=== PATIENT | female | born 1935 | race Caucasian/White ===

== ENCOUNTER 2018-02-26 07:11 | Emergency (ER) | END 2018-02-26 10:12 | disposition home or self-care (01) ==

== ENCOUNTER → 2018-04-16 | Outpatient (CLI) | payer MEDICARE, OTHER ==
[~2018-04-16] MED LIST: ACET500 PO; ALPR.5 PO; Aspirin EC81 MG PO; CEPH500 PO; CONEST.625 PO; CYCL10 PO; DONE5 PO; HYDCHL12.5 PO; IBUP800 PO; LEVSOD75 PO; LOSA50 PO; LOSARTAN POTAS100 MG PO; MECL25 PO; PRAV20 PO; PROG100 PO; THYR60 PO; ZOLP5 PO; Zofran Odt8 MG SL
[2018-04-16 15:03] LABS: Bilirubin, Urine Neg (Neg); Blood, Urine Neg (Neg); Glucose Qualitative, Urine Neg (Neg); Ketones, Urine Neg (Neg); Leukocyte Esterase, Urine Neg (Neg); Nitrite, Urine Neg (Neg); Protein, Urine Neg (Neg); Urobilinogen, Urine NORM (Normal)
[2018-04-16 15:19] LABS: Appearance, Urine Clear (Clear); Color, Urine Yellow (P-Yellow)
== END | disposition home or self-care (01) ==
LOC: LAB EV 13:34 → LAB SHORT 13:34
PROVIDERS: Internal Medicine
DX: R30.0 Dysuria (principal)
CPT/HCPCS: 81003

== ENCOUNTER 2018-04-19 11:23 | Inpatient (IN) | payer MEDICARE, OTHER ==
[~2018-04-19] VITALS: Ht 175.3 cm; Wt 74.0 kg
[~2018-04-19 11:23] MED LIST changes: -ACET500 PO; -ALPR.5 PO; -DONE5 PO
[2018-04-19 11:57] LABS: BASOPHILS ABSOLUTE AUTO 0.05 K/mm3 (0.00-0.23); BASOPHILS PERCENT AUTO 1 % (0-2); EOSINOPHILS ABSOLUTE AUTO 0.07 K/mm3 (0.00-0.68); EOSINOPHILS PERCENT AUTO 1 % (0-6); Hematocrit 38.5 % (33.0-51.0); Hemoglobin 12.7 g/dL (11.5-16.0); IMMATURE GRAN ABSOLUTE AUTO 0.04 K/mm3 (0.00-0.10); IMMATURE GRAN PERCENT AUTO 1 % (0-1); LYMPHOCYTES ABSOLUTE AUTO 1.26 K/mm3 (0.84-5.20); LYMPHOCYTES PERCENT AUTO 20 % (21-46); MONOCYTES ABSOLUTE AUTO 0.71 K/mm3 (0.16-1.47); MONOCYTES PERCENT AUTO 11 % (4-13); Mean Corpuscular HGB 32.1 pg (26.0-34.0); Mean Corpuscular Volume 97 fL (80-100); Mean Platelet Volume 8.7 fL (9.1-12.4); NEUTROPHILS ABSOLUTE AUTO 4.28 K/mm3 (1.96-9.15); NEUTROPHILS PERCENT AUTO 67 % (41-73); Platelet Count 364 K/mm3 (150-400); RDW Coefficient Variation 13.5 % (11.7-14.2); RDW Standard Deviation 48.4 fL (35.1-46.3); Red Blood Cell Count 3.96 M/mm3 (3.80-5.20); White Blood Cell Count 6.41 K/mm3 (4.00-11.30)
[2018-04-19 12:19] LABS: Alanine Aminotransfer (ALT/SGP 17 U/L (12-78); Albumin, Blood 3.4 g/dL (3.4-5.0); Alk Phos 97 U/L (50-136); Anion Gap 8 mmol/L (6-16); Aspartate Aminotrans (AST/SGOT 19 U/L (12-37); Bilirubin, Total 0.3 mg/dL (0.1-1.0); Blood Urea Nitrogen 28 mg/dL (8-24); Bun/Creatinine Ratio 33.4 (12.0-20.0); CO2, Blood 27 mmol/L (21-32); Calcium, Blood 9.1 mg/dL (8.5-10.1); Chloride, Blood 108 mmol/L (98-108); Creatinine, Blood 0.84 mg/dL (0.40-1.00); Globulin, Blood 3.5 g/dL (2.2-4.0); Glomerular Filtration Rate >60 (60-); Glucose, Blood 101 mg/dL (70-99); Potassium, Blood 3.8 mmol/L (3.5-5.5); Sodium, Blood 143 mmol/L (136-145); Total Protein, Blood 6.9 g/dL (6.4-8.2)
[2018-04-19 23:42] LABS: Source, Urine Catheter
[2018-04-19 23:46] LABS: Bilirubin, Urine Neg (Neg); Blood, Urine 1+ (Neg); Glucose Qualitative, Urine Neg (Neg); Ketones, Urine Neg (Neg); Leukocyte Esterase, Urine 1+ (Neg); Nitrite, Urine Neg (Neg); Protein, Urine 1+ (Neg); Urobilinogen, Urine NORM (Normal)
[2018-04-19 23:49] LABS: Appearance, Urine Clear (Clear); Color, Urine Yellow (P-Yellow)
[2018-04-20] MEDS ORDERED: ALPR.5 PO (00:01)
[2018-04-20] MEDS ORDERED: ACET500 PO (00:01)
[2018-04-20] MEDS ORDERED: DONE5 PO (00:02)
[2018-04-20 00:05] LABS: Bacteria Few /hpf; Red Blood Cells, Urine 0-2 /hpf (0-2); Squamous Epithelial Cells Rare /hpf (Few)
[2018-04-20 04:22] LABS: BASOPHILS ABSOLUTE AUTO 0.06 K/mm3 (0.00-0.23); BASOPHILS PERCENT AUTO 1 % (0-2); EOSINOPHILS PERCENT AUTO 0 % (0-6); Hematocrit 35.2 % (33.0-51.0); Hemoglobin 11.8 g/dL (11.5-16.0); IMMATURE GRAN ABSOLUTE AUTO 0.06 K/mm3 (0.00-0.10); IMMATURE GRAN PERCENT AUTO 1 % (0-1); LYMPHOCYTES ABSOLUTE AUTO 1.28 K/mm3 (0.84-5.20); LYMPHOCYTES PERCENT AUTO 11 % (21-46); MONOCYTES PERCENT AUTO 9 % (4-13); Mean Corpuscular HGB 31.9 pg (26.0-34.0); Mean Corpuscular HGB Conc 33.5 g/dL (31.5-36.5); Mean Corpuscular Volume 95 fL (80-100); Mean Platelet Volume 9.2 fL (9.1-12.4); NEUTROPHILS ABSOLUTE AUTO 9.33 K/mm3 (1.96-9.15); NEUTROPHILS PERCENT AUTO 79 % (41-73); Platelet Count 365 K/mm3 (150-400); RDW Coefficient Variation 13.5 % (11.7-14.2); RDW Standard Deviation 47.8 fL (35.1-46.3); White Blood Cell Count 11.83 K/mm3 (4.00-11.30)
[2018-04-20 04:52] LABS: Anion Gap 11 mmol/L (6-16); Blood Urea Nitrogen 19 mg/dL (8-24); Bun/Creatinine Ratio 30.6 (12.0-20.0); CO2, Blood 24 mmol/L (21-32); Calcium, Blood 8.8 mg/dL (8.5-10.1); Chloride, Blood 108 mmol/L (98-108); Creatinine, Blood 0.62 mg/dL (0.40-1.00); Glomerular Filtration Rate >60 (60-); Glucose, Blood 132 mg/dL (70-99); Magnesium, Blood 1.9 mg/dL (1.6-2.4); Potassium, Blood 3.4 mmol/L (3.5-5.5); Sodium, Blood 143 mmol/L (136-145)
[2018-04-21 03:58] LABS: BASOPHILS ABSOLUTE AUTO 0.03 K/mm3 (0.00-0.23); BASOPHILS PERCENT AUTO 0 % (0-2); EOSINOPHILS PERCENT AUTO 0 % (0-6); Hematocrit 33.7 % (33.0-51.0); Hemoglobin 11.3 g/dL (11.5-16.0); IMMATURE GRAN PERCENT AUTO 1 % (0-1); LYMPHOCYTES ABSOLUTE AUTO 1.05 K/mm3 (0.84-5.20); LYMPHOCYTES PERCENT AUTO 8 % (21-46); MONOCYTES PERCENT AUTO 11 % (4-13); Mean Corpuscular HGB 31.9 pg (26.0-34.0); Mean Corpuscular HGB Conc 33.5 g/dL (31.5-36.5); Mean Corpuscular Volume 95 fL (80-100); Mean Platelet Volume 9.3 fL (9.1-12.4); NEUTROPHILS ABSOLUTE AUTO 9.88 K/mm3 (1.96-9.15); NEUTROPHILS PERCENT AUTO 79 % (41-73); Platelet Count 365 K/mm3 (150-400); RDW Coefficient Variation 13.6 % (11.7-14.2); Red Blood Cell Count 3.54 M/mm3 (3.80-5.20); White Blood Cell Count 12.46 K/mm3 (4.00-11.30)
[2018-04-21 04:11] LABS: Anion Gap 9 mmol/L (6-16); Blood Urea Nitrogen 18 mg/dL (8-24); CO2, Blood 24 mmol/L (21-32); Calcium, Blood 8.7 mg/dL (8.5-10.1); Chloride, Blood 110 mmol/L (98-108); Creatinine, Blood 0.67 mg/dL (0.40-1.00); Glomerular Filtration Rate >60 (60-); Glucose, Blood 132 mg/dL (70-99); Potassium, Blood 3.4 mmol/L (3.5-5.5); Sodium, Blood 143 mmol/L (136-145)
[2018-04-21] MEDS ORDERED: ZOLP10 PO (18:58)
[2018-04-22] MEDS ORDERED: LOSA50 PO (10:56)
[2018-04-22] MEDS ORDERED: Xalatan2.5 ML BOTHEYES (10:57)
[2018-04-22] MEDS ORDERED: QUETIAPINE FUMA50 MG PO (10:58)
[2018-04-22] MEDS ORDERED: TIMOLOL MALEATE5 ML BOTHEYES (11:00)
[2018-04-22] MEDS ORDERED: POTCHL10ER PO (11:01)
== END 2018-04-22 12:09 | disposition home health service (06) | DRG 70 ==
LOC: ER 11:23 → ICUW 15:35 → MEDS 17:30 → ENPENDDIS 04-22 09:59 → MEDS 04-22 12:09
PROVIDERS: Internal Medicine; Nurse Practitioner Acute Care; Physician Assistant
DX: G93.41 Metabolic encephalopathy (principal); I63.9 Cerebral infarction, unspecified; N39.0 Urinary tract infection, site not specified; I10 Essential (primary) hypertension; Z51.5 Encounter for palliative care; E78.5 Hyperlipidemia, unspecified; E03.9 Hypothyroidism, unspecified; M17.12 Unilateral primary osteoarthritis, left knee; I16.0 Hypertensive urgency; Z79.82 Long term (current) use of aspirin; R27.0 Ataxia, unspecified; Z85.118 Personal history of other malignant neoplasm of bronchus and lung; Z92.3 Personal history of irradiation; F03.90 Unspecified dementia, unspecified severity, without behavioral disturbance, psychotic disturbance, mood disturbance, and anxiety; E87.6 Hypokalemia; H40.9 Unspecified glaucoma; Z99.3 Dependence on wheelchair; S05.10XD Contusion of eyeball and orbital tissues, unspecified eye, subsequent encounter; W19.XXXD Unspecified fall, subsequent encounter
CPT/HCPCS: 36415; 70450; 70551; 71250; 72100; 73562-LT; 80048; 80053; 81000; 81001; 83735; 85025; 87086; 87493; 93005; 93010; 96361; 96365; 96375; 97163; 97530; 99285-25; C9113; G8978; G8979; J0360; J0696; J1630; J1650; J2060; J3010; J3480; J7030; J7120

== ENCOUNTER 2018-10-19 08:12 | Emergency (ER) | payer MEDICARE, OTHER ==
[~2018-10-19] VITALS: Ht 175.3 cm; Wt 72.6 kg
[~2018-10-19 08:12] MED LIST changes: +ACET500 PO; +ALPR.5 PO; +AMLO5 PO; +CONEST.9 PO; +DONE5 PO; +FENTANYL1 EAC2 TOP; +GABA100 PO; +GABA300 PO; +LOVA40; +MECL12.5 PO; +Micro-K10 MEQ; +OXYB5 PO; +POTCHL10ER PO; +QUET25 PO; +QUETIAPINE FUMA50 MG PO; +SENN187 PO; +TIMOLOL MALEATE5 ML BOTHEYES; +TIMOPTIC 0.5%1 EACH BOTHEYES; +TRAZ50 PO; +Xalatan2.5 ML BOTHEYES; +ZOLP10 PO; +Zanaflex4 M1 PO
[2018-10-19 08:50] LABS: BASOPHILS ABSOLUTE AUTO 0.08 K/mm3 (0.00-0.23); BASOPHILS PERCENT AUTO 1 % (0-2); EOSINOPHILS ABSOLUTE AUTO 0.18 K/mm3 (0.00-0.68); EOSINOPHILS PERCENT AUTO 3 % (0-6); Hematocrit 40.9 % (33.0-51.0); Hemoglobin 13.1 g/dL (11.5-16.0); IMMATURE GRAN ABSOLUTE AUTO 0.02 K/mm3 (0.00-0.10); IMMATURE GRAN PERCENT AUTO 0 % (0-1); LYMPHOCYTES ABSOLUTE AUTO 1.47 K/mm3 (0.84-5.20); LYMPHOCYTES PERCENT AUTO 23 % (21-46); MONOCYTES PERCENT AUTO 14 % (4-13); Mean Corpuscular HGB 30.2 pg (26.0-34.0); Mean Corpuscular Volume 94 fL (80-100); Mean Platelet Volume 8.4 fL (9.1-12.4); NEUTROPHILS ABSOLUTE AUTO 3.77 K/mm3 (1.96-9.15); NEUTROPHILS PERCENT AUTO 59 % (41-73); Platelet Count 342 K/mm3 (150-400); RDW Coefficient Variation 13.2 % (11.7-14.2); RDW Standard Deviation 45.7 fL (35.1-46.3); Red Blood Cell Count 4.34 M/mm3 (3.80-5.20); White Blood Cell Count 6.42 K/mm3 (4.00-11.30)
[2018-10-19 09:13] LABS: Alanine Aminotransfer (ALT/SGP 13 U/L (12-78); Albumin, Blood 3.3 g/dL (3.4-5.0); Albumin/Globulin Ratio 0.9 (0.8-1.8); Alk Phos 100 U/L (50-136); Anion Gap 8 mmol/L (6-16); Aspartate Aminotrans (AST/SGOT 10 U/L (12-37); Bilirubin, Total 0.3 mg/dL (0.1-1.0); Blood Urea Nitrogen 24 mg/dL (8-24); Bun/Creatinine Ratio 25.6 (12.0-20.0); CO2, Blood 27 mmol/L (21-32); Calcium, Blood 9.1 mg/dL (8.5-10.1); Chloride, Blood 107 mmol/L (98-108); Creatinine, Blood 0.94 mg/dL (0.40-1.00); Globulin, Blood 3.7 g/dL (2.2-4.0); Glomerular Filtration Rate >60 (60-); Glucose, Blood 109 mg/dL (70-99); Magnesium, Blood 2.1 mg/dL (1.6-2.4); Potassium, Blood 3.5 mmol/L (3.5-5.5); Sodium, Blood 142 mmol/L (136-145); Troponin I <0.015 ng/mL (0.000-0.040)
[2018-10-19 11:23] LABS: Source, Urine Clean Catch
[2018-10-19 11:36] LABS: Appearance, Urine Clear (Clear); Bilirubin, Urine Neg (Neg); Blood, Urine Neg (Neg); Color, Urine Yellow (P-Yellow); Glucose Qualitative, Urine Neg (Neg); Ketones, Urine Neg (Neg); Leukocyte Esterase, Urine Neg (Neg); Nitrite, Urine Neg (Neg); Protein, Urine 1+ (Neg); Urobilinogen, Urine NORM (Normal)
== END 2018-10-19 11:39 | disposition home or self-care (01) ==
LOC: ER 08:12
PROVIDERS: Physician Assistant
DX: R06.00 Dyspnea, unspecified (principal); R53.1 Weakness; I10 Essential (primary) hypertension
CPT/HCPCS: 36415; 71046; 80053; 83735; 84484; 85025; 93005; 93010; 99285-25

== ENCOUNTER → 2018-10-29 | Outpatient (CLI) | payer MEDICARE, OTHER | END | disposition home or self-care (01) | LOC: LAB 15:27 → LAB SHORT 15:27 | DX: R07.0 Pain in throat (principal) | CPT/HCPCS: 87070 ==

== ENCOUNTER 2018-12-22 23:06 | Emergency (ER) | payer MEDICARE, OTHER ==
[~2018-12-22] VITALS: Ht 175.3 cm; Wt 64.0 kg
[2018-12-23] MEDS ORDERED: KETO10 PO (01:07)
[2018-12-23] MEDS ORDERED: Norco 5-325 Ta1 EACH PO (01:07)
== END 2018-12-23 01:42 | disposition home or self-care (01) ==
LOC: ER 23:06
DX: M17.12 Unilateral primary osteoarthritis, left knee (principal); Z88.5 Allergy status to narcotic agent; Z79.899 Other long term (current) drug therapy; Z79.891 Long term (current) use of opiate analgesic; I10 Essential (primary) hypertension
CPT/HCPCS: 96372; 99283-25; A9270-GY; J1885

== ENCOUNTER 2019-05-06 10:43 | Emergency (ER) | payer MEDICARE, OTHER ==
[~2019-05-06] VITALS: Ht 177.8 cm; Wt 79.4 kg
[~2019-05-06 10:43] MED LIST changes: +KETO10 PO; +Norco 5-325 Ta1 EACH PO
[2019-05-06 11:21] LABS: BASOPHILS ABSOLUTE AUTO 0.07 K/mm3 (0.00-0.23); BASOPHILS PERCENT AUTO 1 % (0-2); EOSINOPHILS ABSOLUTE AUTO 0.09 K/mm3 (0.00-0.68); EOSINOPHILS PERCENT AUTO 1 % (0-6); Hematocrit 43.2 % (33.0-51.0); Hemoglobin 13.8 g/dL (11.5-16.0); IMMATURE GRAN ABSOLUTE AUTO 0.05 K/mm3 (0.00-0.10); IMMATURE GRAN PERCENT AUTO 1 % (0-1); LYMPHOCYTES ABSOLUTE AUTO 1.22 K/mm3 (0.84-5.20); LYMPHOCYTES PERCENT AUTO 17 % (21-46); MONOCYTES ABSOLUTE AUTO 0.94 K/mm3 (0.16-1.47); MONOCYTES PERCENT AUTO 13 % (4-13); Mean Corpuscular HGB 30.5 pg (26.0-34.0); Mean Corpuscular HGB Conc 31.9 g/dL (31.5-36.5); Mean Corpuscular Volume 95 fL (80-100); Mean Platelet Volume 8.7 fL (9.1-12.4); NEUTROPHILS ABSOLUTE AUTO 4.75 K/mm3 (1.96-9.15); NEUTROPHILS PERCENT AUTO 67 % (41-73); Platelet Count 364 K/mm3 (150-400); RDW Coefficient Variation 14.1 % (11.7-14.2); RDW Standard Deviation 49.3 fL (35.1-46.3); Red Blood Cell Count 4.53 M/mm3 (3.80-5.20); White Blood Cell Count 7.12 K/mm3 (4.00-11.30)
[2019-05-06 11:35] LABS: Alanine Aminotransfer (ALT/SGP 16 U/L (12-78); Albumin, Blood 3.4 g/dL (3.4-5.0); Albumin/Globulin Ratio 0.9 (0.8-1.8); Alk Phos 93 U/L (50-136); Anion Gap 5 mmol/L (6-16); Aspartate Aminotrans (AST/SGOT 13 U/L (12-37); Bilirubin, Total 0.4 mg/dL (0.1-1.0); Blood Urea Nitrogen 19 mg/dL (8-24); Bun/Creatinine Ratio 20.6 (12.0-20.0); CO2, Blood 26 mmol/L (21-32); Chloride, Blood 110 mmol/L (98-108); Creatinine, Blood 0.92 mg/dL (0.40-1.00); Globulin, Blood 3.8 g/dL (2.2-4.0); Glomerular Filtration Rate >60 (60-); Glucose, Blood 122 mg/dL (70-99); Potassium, Blood 3.8 mmol/L (3.5-5.5); Sodium, Blood 141 mmol/L (136-145); Total Protein, Blood 7.2 g/dL (6.4-8.2)
[2019-05-06 12:27] LABS: Source, Urine Catheter
[2019-05-06 12:29] LABS: Free Thyroxine 1.39 ng/dL (0.70-1.60); Magnesium, Blood 2.3 mg/dL (1.6-2.4)
[2019-05-06 12:30] LABS: Bilirubin, Urine Neg (Neg); Blood, Urine Neg (Neg); Glucose Qualitative, Urine Neg (Neg); Ketones, Urine Neg (Neg); Leukocyte Esterase, Urine Neg (Neg); Nitrite, Urine Neg (Neg); Protein, Urine 1+ (Neg); Specific Gravity, Urine 1.015 (1.003-1.022); Urobilinogen, Urine NORM (Normal)
[2019-05-06 12:31] LABS: Thyroid Stimulating Hormone 1.53 uIU/mL (0.360-4.800)
[2019-05-06 12:39] LABS: Appearance, Urine Clear (Clear); Color, Urine Yellow (P-Yellow)
== END 2019-05-06 14:34 | disposition home or self-care (01) ==
LOC: ER 10:43
PROVIDERS: Emergency Medicine
DX: I10 Essential (primary) hypertension (principal); R53.1 Weakness; M25.561 Pain in right knee; M25.562 Pain in left knee; G89.29 Other chronic pain; Z88.5 Allergy status to narcotic agent; Z79.899 Other long term (current) drug therapy; Z79.891 Long term (current) use of opiate analgesic; F03.90 Unspecified dementia, unspecified severity, without behavioral disturbance, psychotic disturbance, mood disturbance, and anxiety; E03.9 Hypothyroidism, unspecified
CPT/HCPCS: 36415; 80053; 83735; 84439; 84443; 85025; 93005; 93010; 96374; 99284-25; J0360

== ENCOUNTER → 2019-08-08 | Outpatient (CLI) | payer MEDICARE, OTHER ==
[2019-08-08 13:23] LABS: BASOPHILS ABSOLUTE AUTO 0.07 K/mm3 (0.00-0.23); BASOPHILS PERCENT AUTO 1 % (0-2); EOSINOPHILS ABSOLUTE AUTO 0.03 K/mm3 (0.00-0.68); EOSINOPHILS PERCENT AUTO 0 % (0-6); Hematocrit 40.7 % (33.0-51.0); Hemoglobin 13.5 g/dL (11.5-16.0); IMMATURE GRAN ABSOLUTE AUTO 0.07 K/mm3 (0.00-0.10); IMMATURE GRAN PERCENT AUTO 1 % (0-1); LYMPHOCYTES ABSOLUTE AUTO 1.32 K/mm3 (0.84-5.20); LYMPHOCYTES PERCENT AUTO 15 % (21-46); MONOCYTES ABSOLUTE AUTO 0.89 K/mm3 (0.16-1.47); MONOCYTES PERCENT AUTO 10 % (4-13); Mean Corpuscular HGB 31.9 pg (26.0-34.0); Mean Corpuscular HGB Conc 33.2 g/dL (31.5-36.5); Mean Corpuscular Volume 96 fL (80-100); Mean Platelet Volume 9.4 fL (9.1-12.4); NEUTROPHILS ABSOLUTE AUTO 6.47 K/mm3 (1.96-9.15); NEUTROPHILS PERCENT AUTO 73 % (41-73); Platelet Count 435 K/mm3 (150-400); RDW Coefficient Variation 13.3 % (11.7-14.2); RDW Standard Deviation 47.1 fL (35.1-46.3); Red Blood Cell Count 4.23 M/mm3 (3.80-5.20); White Blood Cell Count 8.85 K/mm3 (4.00-11.30)
[2019-08-08 13:39] LABS: Alanine Aminotransfer (ALT/SGP 15 U/L (12-78); Albumin, Blood 3.2 g/dL (3.4-5.0); Albumin/Globulin Ratio 0.9 (0.8-1.8); Alk Phos 90 U/L (50-136); Anion Gap 9 mmol/L (6-16); Aspartate Aminotrans (AST/SGOT 15 U/L (12-37); Bilirubin, Total 0.2 mg/dL (0.1-1.0); Blood Urea Nitrogen 24 mg/dL (8-24); Bun/Creatinine Ratio 29.7 (12.0-20.0); CO2, Blood 26 mmol/L (21-32); Calcium, Blood 9.3 mg/dL (8.5-10.1); Chloride, Blood 108 mmol/L (98-108); Creatinine, Blood 0.81 mg/dL (0.40-1.00); Globulin, Blood 3.7 g/dL (2.2-4.0); Glomerular Filtration Rate >60 (60-); Glucose, Blood 109 mg/dL (70-99); Potassium, Blood 3.8 mmol/L (3.5-5.5); Sodium, Blood 143 mmol/L (136-145); Total Protein, Blood 6.9 g/dL (6.4-8.2)
== END | disposition home or self-care (01) ==
LOC: LAB 13:14 → LAB SHORT 13:14
PROVIDERS: Physician Assistant
DX: R53.83 Other fatigue (principal); R53.81 Other malaise
CPT/HCPCS: 80053; 85025

== ENCOUNTER → 2019-08-15 | Outpatient (CLI) | payer MEDICARE, OTHER ==
[~2019-08-15] MED LIST changes: +Betimol5 ML BOTHEYES; +LATANOPROST2.5 M1 BOTHEYES; +MOTION RELIEF25 M1 PO; +PREDNISOLONE ACE5 ML BOTHEYES; -TIMOPTIC 0.5%1 EACH BOTHEYES
[2019-08-15 11:35] LABS: Source, Urine Clean Catch
[2019-08-15 12:05] LABS: Bilirubin, Urine Neg (Neg); Blood, Urine Neg (Neg); Glucose Qualitative, Urine Neg (Neg); Ketones, Urine Neg (Neg); Leukocyte Esterase, Urine 1+ (Neg); Nitrite, Urine Neg (Neg); Protein, Urine Neg (Neg); Specific Gravity, Urine 1.015 (1.003-1.022); Urobilinogen, Urine NORM (Normal); pH, Urine 6.5 (5.0-8.0)
[2019-08-15 12:16] LABS: Appearance, Urine Clear (Clear); Color, Urine Yellow (P-Yellow)
[2019-08-15 12:22] LABS: Red Blood Cells, Urine 0-2 /hpf (0-2); Squamous Epithelial Cells Few /hpf (Few)
[2019-08-15 12:23] LABS: Bacteria Few /hpf
== END | disposition home or self-care (01) ==
LOC: LAB 11:30 → LAB SHORT 11:30
PROVIDERS: Physician Assistant
DX: N39.0 Urinary tract infection, site not specified (principal)
CPT/HCPCS: 81001; 87086

== ENCOUNTER 2019-08-29 16:37 | Emergency (ER) | payer MEDICARE, OTHER ==
[~2019-08-29] VITALS: Ht 172.7 cm; Wt 99.8 kg
[~2019-08-29 16:37] MED LIST changes: -Betimol5 ML BOTHEYES; -LATANOPROST2.5 M1 BOTHEYES; -MOTION RELIEF25 M1 PO; -PREDNISOLONE ACE5 ML BOTHEYES; +TIMOPTIC 0.5%1 EACH BOTHEYES
[2019-08-29 17:41] LABS: BASOPHILS ABSOLUTE AUTO 0.09 K/mm3 (0.00-0.23); BASOPHILS PERCENT AUTO 1 % (0-2); EOSINOPHILS ABSOLUTE AUTO 0.16 K/mm3 (0.00-0.68); EOSINOPHILS PERCENT AUTO 2 % (0-6); Hematocrit 41.8 % (33.0-51.0); Hemoglobin 13.5 g/dL (11.5-16.0); IMMATURE GRAN ABSOLUTE AUTO 0.05 K/mm3 (0.00-0.10); IMMATURE GRAN PERCENT AUTO 1 % (0-1); LYMPHOCYTES ABSOLUTE AUTO 1.67 K/mm3 (0.84-5.20); LYMPHOCYTES PERCENT AUTO 21 % (21-46); MONOCYTES ABSOLUTE AUTO 1.09 K/mm3 (0.16-1.47); MONOCYTES PERCENT AUTO 14 % (4-13); Mean Corpuscular HGB 30.8 pg (26.0-34.0); Mean Corpuscular HGB Conc 32.3 g/dL (31.5-36.5); Mean Corpuscular Volume 95 fL (80-100); Mean Platelet Volume 9.8 fL (9.1-12.4); NEUTROPHILS ABSOLUTE AUTO 4.79 K/mm3 (1.96-9.15); NEUTROPHILS PERCENT AUTO 61 % (41-73); Platelet Count 378 K/mm3 (150-400); RDW Coefficient Variation 13.4 % (11.7-14.2); RDW Standard Deviation 47.7 fL (35.1-46.3); Red Blood Cell Count 4.38 M/mm3 (3.80-5.20); White Blood Cell Count 7.85 K/mm3 (4.00-11.30)
[2019-08-29 18:16] LABS: Source, Urine Clean Catch
[2019-08-29 18:21] LABS: Bilirubin, Urine Neg (Neg); Blood, Urine Neg (Neg); Glucose Qualitative, Urine Neg (Neg); Ketones, Urine Neg (Neg); Leukocyte Esterase, Urine Neg (Neg); Nitrite, Urine Neg (Neg); Protein, Urine Neg (Neg); Urobilinogen, Urine NORM (Normal)
[2019-08-29 18:54] LABS: Appearance, Urine Clear (Clear); Color, Urine Yellow (P-Yellow)
[2019-08-29 19:23] LABS: Bicarbonate Venous 26.5 mmol/L (24.0-30.0); PCO2 Venous 39.3 mmHg (38-42); PO2 Venous 158 mmHg (38-42); pH Blood Venous 7.44 (7.34-7.37)
[2019-08-29 19:24] LABS: Base Excess Venous 2.4 mmol/L
[2019-08-29 19:26] LABS: Alanine Aminotransfer (ALT/SGP 18 U/L (12-78); Albumin, Blood 3.2 g/dL (3.4-5.0); Albumin/Globulin Ratio 0.8 (0.8-1.8); Alk Phos 95 U/L (50-136); Anion Gap 8 mmol/L (6-16); Aspartate Aminotrans (AST/SGOT 13 U/L (12-37); Bilirubin, Total 0.3 mg/dL (0.1-1.0); Blood Urea Nitrogen 18 mg/dL (8-24); Bun/Creatinine Ratio 23.2 (12.0-20.0); CO2, Blood 24 mmol/L (21-32); Calcium, Blood 9.9 mg/dL (8.5-10.1); Chloride, Blood 109 mmol/L (98-108); Creatinine, Blood 0.78 mg/dL (0.40-1.00); Globulin, Blood 3.8 g/dL (2.2-4.0); Glomerular Filtration Rate >60 (60-); Glucose, Blood 115 mg/dL (70-99); Potassium, Blood 3.9 mmol/L (3.5-5.5); Sodium, Blood 141 mmol/L (136-145); Troponin I <0.015 ng/mL (0.000-0.040)
== END 2019-08-29 20:29 | disposition home or self-care (01) ==
LOC: ER 16:37
PROVIDERS: Emergency Medicine
DX: R06.02 Shortness of breath (principal); I10 Essential (primary) hypertension; Z88.5 Allergy status to narcotic agent; Z79.899 Other long term (current) drug therapy
CPT/HCPCS: 36415; 71045; 80053; 81003; 82803; 83690; 84484; 85025; 93005; 93010; 96374; 96375; 99284-25; J2060

== ENCOUNTER → 2019-10-07 | Outpatient (CLI) | payer MEDICARE, OTHER ==
[~2019-10-07] MED LIST changes: +Betimol5 ML BOTHEYES; +LATANOPROST2.5 M1 BOTHEYES; +MOTION RELIEF25 M1 PO; +PREDNISOLONE ACE5 ML BOTHEYES; -TIMOPTIC 0.5%1 EACH BOTHEYES
== END ==
LOC: LAB EV 09:28
DX: R35.0 Frequency of micturition (principal)
CPT/HCPCS: 87086

== ENCOUNTER 2019-10-16 09:48 | Inpatient (IN) | payer MEDICARE, OTHER ==
[~2019-10-16] VITALS: Ht 167.6 cm; Wt 77.3 kg
[~2019-10-16 09:48] MED LIST changes: -LATANOPROST2.5 M1 BOTHEYES; -MOTION RELIEF25 M1 PO; -PREDNISOLONE ACE5 ML BOTHEYES
[2019-10-16 10:00] LABS: BASOPHILS ABSOLUTE AUTO 0.08 K/mm3 (0.00-0.23); BASOPHILS PERCENT AUTO 1 % (0-2); EOSINOPHILS ABSOLUTE AUTO 0.04 K/mm3 (0.00-0.68); EOSINOPHILS PERCENT AUTO 1 % (0-6); Hemoglobin 13.5 g/dL (11.5-16.0); IMMATURE GRAN ABSOLUTE AUTO 0.07 K/mm3 (0.00-0.10); IMMATURE GRAN PERCENT AUTO 1 % (0-1); LYMPHOCYTES ABSOLUTE AUTO 1.62 K/mm3 (0.84-5.20); LYMPHOCYTES PERCENT AUTO 19 % (21-46); MONOCYTES ABSOLUTE AUTO 0.85 K/mm3 (0.16-1.47); MONOCYTES PERCENT AUTO 10 % (4-13); Mean Corpuscular HGB 30.8 pg (26.0-34.0); Mean Corpuscular HGB Conc 32.1 g/dL (31.5-36.5); Mean Corpuscular Volume 96 fL (80-100); Mean Platelet Volume 8.7 fL (9.1-12.4); NEUTROPHILS ABSOLUTE AUTO 5.67 K/mm3 (1.96-9.15); NEUTROPHILS PERCENT AUTO 68 % (41-73); Platelet Count 423 K/mm3 (150-400); RDW Standard Deviation 46.6 fL (35.1-46.3); Red Blood Cell Count 4.38 M/mm3 (3.80-5.20); White Blood Cell Count 8.33 K/mm3 (4.00-11.30)
[2019-10-16 10:16] LABS: International Normalized Ratio 0.96; Prothrombin Time Results 10.3 Sec (9.7-11.5)
[2019-10-16 10:19] LABS: Alanine Aminotransfer (ALT/SGP 20 U/L (12-78); Albumin, Blood 3.3 g/dL (3.4-5.0); Albumin/Globulin Ratio 0.8 (0.8-1.8); Alk Phos 99 U/L (50-136); Anion Gap 7 mmol/L (6-16); Aspartate Aminotrans (AST/SGOT 16 U/L (12-37); Bilirubin, Total 0.3 mg/dL (0.1-1.0); Blood Urea Nitrogen 16 mg/dL (8-24); Bun/Creatinine Ratio 20.4 (12.0-20.0); CO2, Blood 26 mmol/L (21-32); Calcium, Blood 9.1 mg/dL (8.5-10.1); Chloride, Blood 108 mmol/L (98-108); Creatinine, Blood 0.78 mg/dL (0.40-1.00); Globulin, Blood 4.1 g/dL (2.2-4.0); Glomerular Filtration Rate >60 (60-); Glucose, Blood 139 mg/dL (70-99); Potassium, Blood 3.7 mmol/L (3.5-5.5); Sodium, Blood 141 mmol/L (136-145); Total Protein, Blood 7.4 g/dL (6.4-8.2); Troponin I <0.015 ng/mL (0.000-0.040)
[2019-10-16] MEDS ORDERED: MOTION RELIEF25 M1 PO (13:38)
[2019-10-16] MEDS ORDERED: PREDNISOLONE ACE5 ML BOTHEYES (13:38)
[2019-10-16] MEDS ORDERED: LATANOPROST2.5 M1 BOTHEYES (13:46)
--- NOTE | 2019-10-16 19:27 | NUR ---
1220 - PT ARRIVED TO ROOM FROM ER ACCOMPANIED BY CARLOS CAREGIVER. PT HAS PROFOUND LEFT FACIAL DROOP WITH FLACID LEFT EXTREMETIES AND DRIFT. SLURRED SPEECH, KEEPS REPEATING SHE IS IN PAIN. ORDERS OBTAINED FOR IVF, PAIN MEDS AND THERAPY EVALS. 1330 - IV MEDS GIVEN, PT POSITIONED FOR COMFORT ON R SIDE. CG AT BEDSIDE. PT STILL CALLING OUT. LIGHTS DIMMED. CALL LIGHT WITH CG. 1530 - REQ FOR MORE PAIN MEDS GIVEN. CG AT BEDSIDE 1630 - SPOUSE AT BEDSIDE. PT CALLING OUT TO USE THE COMMODE. ODD PIECE CHECKER'S ALREADY TRIED THE BED GRANT, SHE WOULD NOT GO. ALSO WOULD NOT GO IN ATTENDS. LEFT EXTREMETIES HAVE SOME MOVEMENT BUT VERY WEAK. ABLE TO LIFT ARM AND LEG, FACIAL DROOP STILL PRESENT. 1830 - CHECKED ON PT, SHE WAS SITTING UP WITH HOB ELEVATED, SITTING UPRIGHT WITHOUT LISTING THE THE LEFT. MOVING ALL EXTREMETIES, NO FACIAL DROOP NOTED. HAD GOWN OFF. REPLACED GOWN, REORIENTED TO PLACE AND EVENTS. ADVANCED ALZ, SEEING PEOPLE IN THE ROOM. NO LONGER REQUESTING TO GO TO THE BATHROOM. 1715 - REPORT GIVEN TO DORINDA CAMARGO AND TONYA CAMARGO
--- NOTE | 2019-10-16 20:00 | NUR ---
ASSUMED CARE OF PT. APPEARS ANXIOUS AND CONFUSED, STATING SHE NEEDS TO LEAVE "THIS PLACE." REASSURED PT THAT SHE IS SAFE HERE. NO OTHER SIGNS OF DISTRESS NOTED. DENIES ANY NEEDS AT THIS TIME. CALL LIGHT AND POSSESSIONS IN REACH, BED IN LOW AND LOCKED POSITION WITH BED ALARM ACTIVATED, WILL CONTINUE TO MONITOR.
--- NOTE | 2019-10-16 21:34 | NUR ---
PATIENT AGITATED PATIENT ATTEMPTING TO GET UP OUT OF BED. PATEINT YELLING 'SOMEONE HELP' - PATIENT CONFUSED TO LOCATION, TIME AND SITUATION. PATIENT STATES HER WAS IN PRISION, THEN STATES AT HOSPITAL. PATIENT EDUCATED AND REORIENTED TO ROOM BUT PATIENT REMAINS CONFUSED TO LOCATION, TIME AND SITUATION. PATIENT REDIRECTED EVERY 5-10 MINUTES FOR THE LAST 1 HOUR + AND PATIENT CONTINUES TO YELL OUT. SIDE RAILS UP X4 AND BED ALARM ON. PER DAYSHIFT RN PATIENTS , JOHNNY, WAS AT THE BEDSIDE T/O DAY AND LEFT BEFORE DARK HE DOES NOT DRIVE WELL AT NIGHT. WILL CONTINUE TO REDIRECT, REEDUCATE AND PROVIDE SOOTHING MEASURES TO PATIENT. CALLED PATIENTS SPOUSE AND LEFT A MESSAGE - WITH THE THOUGHT THAT SPEAKING TO HIM ON THE PHONE MIGHT CONSOLE HER.
[2019-10-17 03:56] LABS: BASOPHILS ABSOLUTE AUTO 0.07 K/mm3 (0.00-0.23); BASOPHILS PERCENT AUTO 1 % (0-2); EOSINOPHILS ABSOLUTE AUTO 0.02 K/mm3 (0.00-0.68); EOSINOPHILS PERCENT AUTO 0 % (0-6); Hematocrit 43.4 % (33.0-51.0); Hemoglobin 13.8 g/dL (11.5-16.0); IMMATURE GRAN ABSOLUTE AUTO 0.08 K/mm3 (0.00-0.10); IMMATURE GRAN PERCENT AUTO 1 % (0-1); LYMPHOCYTES ABSOLUTE AUTO 2.06 K/mm3 (0.84-5.20); LYMPHOCYTES PERCENT AUTO 16 % (21-46); MONOCYTES ABSOLUTE AUTO 1.15 K/mm3 (0.16-1.47); MONOCYTES PERCENT AUTO 9 % (4-13); Mean Corpuscular HGB 30.3 pg (26.0-34.0); Mean Corpuscular HGB Conc 31.8 g/dL (31.5-36.5); Mean Corpuscular Volume 95 fL (80-100); Mean Platelet Volume 8.9 fL (9.1-12.4); NEUTROPHILS ABSOLUTE AUTO 9.24 K/mm3 (1.96-9.15); NEUTROPHILS PERCENT AUTO 73 % (41-73); Platelet Count 422 K/mm3 (150-400); RDW Coefficient Variation 13.1 % (11.7-14.2); RDW Standard Deviation 46.4 fL (35.1-46.3); Red Blood Cell Count 4.56 M/mm3 (3.80-5.20); White Blood Cell Count 12.62 K/mm3 (4.00-11.30)
[2019-10-17 04:24] LABS: Anion Gap 7 mmol/L (6-16); Blood Urea Nitrogen 16 mg/dL (8-24); Bun/Creatinine Ratio 22.1 (12.0-20.0); CO2, Blood 22 mmol/L (21-32); Calcium, Blood 8.9 mg/dL (8.5-10.1); Chloride, Blood 113 mmol/L (98-108); Creatinine, Blood 0.73 mg/dL (0.40-1.00); Glomerular Filtration Rate >60 (60-); Glucose, Blood 123 mg/dL (70-99); Potassium, Blood 3.7 mmol/L (3.5-5.5); Sodium, Blood 142 mmol/L (136-145)
[2019-10-17 06:12] LABS: Source, Urine Catheter
[2019-10-17 06:28] LABS: Appearance, Urine Clear (Clear); Bilirubin, Urine Neg (Neg); Blood, Urine Neg (Neg); Color, Urine Yellow (P-Yellow); Glucose Qualitative, Urine Neg (Neg); Ketones, Urine 1+ (Neg); Leukocyte Esterase, Urine Neg (Neg); Nitrite, Urine Neg (Neg); Protein, Urine 1+ (Neg); Urobilinogen, Urine NORM (Normal)
--- NOTE | 2019-10-17 07:36 | NUR ---
PT RESTING IN BED COMFORTABLY, IN NO ACUTE DISTRESS. WAS MONITORED EVERY 1-2 HOURS WITH NEEDS MET. DENIES ANY NEEDS AT THIS TIME. CALL LIGHT AND POSSESSIONS IN REACH, BED IN LOW POSITION.
--- NOTE | 2019-10-17 08:15 | NUR ---
AM ASSESSMENT: PT IS ALERT, ORIENTED TO SELF/FAMILY ONLY. PT RE-ORIENTED AT THIS TIME, HOWEVER, HAS POOR SHORT TERM MEMORY. PT IS ANXIOUS AND APPEARS FEARFUL OF CARE AT TIMES, AND UNWILLING TO COMPLETE DIRECTIONS ASKED. PT HAS SLIGHTLY LEFT FACIAL DROOP WITH SMILE. SOME LT SIDE NEGLECT AND UE DRIFT AND WEAKER PROCESS ANALYST ON THE LT SIDE. LUNGS ARE CLEAR T/O BUT DIMINISHED IN THE BILATERAL BASES. SP02 SATS >90% ON RA. HR REGULAR, SR. TRACE LE EDEMA BILATERALLY. SIMMS CATH DRAINING CLEAR, DUTCH COLORED URINE TO GRAVITY. NO BM THIS SHIFT.
--- NOTE | 2019-10-17 11:55 | NUR ---
DR CEJA IN TO ASSESS PT. UPDATED PT'S STATUS. SEE NEW ORDERS.
--- NOTE | 2019-10-17 14:31 | NUR ---
PT UPDATE: MARLI PALLATIVE CARE RN IN TO TALK WITH PT'S CAREGIVER, KELSEY. UNFORTUNATELY, PT'S SPOUSE UNABLE TO BE AT THE BEDSIDE AT THIS TIME. DISCUSSED HOME CARE/NEEDS, DIET, ETC. SEE PALLPIYUSH NOTES. MRI FORM FAXED TO RADIOLOGY AFTER PT'S SPOUSE SIGNED RECENTLY.
--- NOTE | 2019-10-17 14:48 | NUR ---
Brief Pt visit this afternoon. Pt resting in bed and just received pain medication from bedside RN. Pt is A&OX1. Pt's just recently left and Pt's caregiver is just about to leave. Engaged in brief discussion regarding goals of care. Caregiver Carmel reports Pt's would still like Pt to be placed with hospice services when she is appropriate. Carmel reports [facility] and was evaluated by hospice approximately 1 month ago and at that time Pt did not meet criteria. Carmel reports Pt's home health nurse and Pt's are in routine communication with [facility]. Carmel reports Pt at baseline is able to have general diet without any restrictions. Pt experiences significant confusion routinely and requires assistance with most of her ADLs. Spoke with Pt's bedside RN Kaleb and discussed case. Plan is for MRI today or tomorrow. Palliative Care will F/U for therapeutic visits and will plan for prognostication assessment.
--- NOTE | 2019-10-17 16:38 | NUR ---
SHIFT SUMMARY: PT IS ALERT, ORIENTED TO SELF ONLY. PT HAS BEEN CALLING OUT SINCE SPOUSE/CAREGIVER HAVE LEFT THE BEDSIDE. SEVERAL STAFF HAVE BEEN IN THE ROOM TO CONSOLE PT, WHO STATES REPEATEDLY, "I'M SCARED." THIS RN UNABLE TO CALM PT. PT CONTINUES TO HAVE A LT SIDED FACIAL DROOP, LT UE DRIFT, AND WEAKER LT WORK MANAGER WHEN COMPARED TO THE RT. PT/OT IS WORKING WITH PT AND FINDS SHE NEEDS MAX ASSIST WITH MOST ALL HER ADL'S. CAREGIVER AT HOME IS AWARE OF THIS, SHE WAS AT THE BEDSIDE DURING THEIR EVALUATION. LUNGS REMAIN CLEAR BUT DIMINISHED IN THE BILATERAL BASES. SP02 SATS REMAIN >90% ON RA. HR REGULAR, SR. PT REMAINS ON NS @ 100ML/HR. PT FOUND TO HAVE PULLED ON CATHETER. NO BLOOD SEEN IN THE URINE AT THIS POINT. SIMMS CATH CONTINUES TO DRAIN DUTCH COLORED URINE. PT UNABLE TO UNDERSTAND SHE HAS A CATHETER AND REPEATEDLY ASKS TO GET UP TO VOID. PT'S DIET UPGRADED TO SOFT, BUT PT REMAINS AN ASPIRATION RISK AND NEEDS DINING ASSIST W/MEALS. MARLI FARR MET WITH THE PT'S CAREGIVER TODAY AND DISCUSSED POTENTIAL FOR PT TO NOW QAULIFY FOR HOSPICE. DISCUSSED CODE STATUS AND FUTURE PLAN OF CARE. SEE NOTES.
--- NOTE | 2019-10-17 18:00 | NUR ---
ATTEMPTED TO CALL DR CEJA IN RE: OBTAINING MRI AND LEFT MESSAGE. WOULD BE UNABLE TO OBTAIN MRI, PT IS VERY CONFUSED. CONSTANTLY CALLING OUT FOR HER CAREGIVER AND STATING SHE "NEEDS TO GO HOME, IT'S GETTING DARK." PT ALSO PULLING OFF TELEMETRY LEADS AND ON CATHETER.
--- NOTE | 2019-10-17 19:33 | NUR ---
REPORTED OFF TO LIYA RN WHOM ARE NOW ASSUMING CARE OF THIS PT.
--- NOTE | 2019-10-17 19:38 | NUR ---
ASSUMED CARE OF PT. APPEARS ANXIOUS, ASKING RN TO HELP HER AND STATING THAT SHE NEEDS TO "GET OUT." REASSURED AND REORIENTED PT NEEDED. CALL LIGHT AND POSSESIONS IN REACH. WILL CONTINUE TO MONITOR.
--- NOTE | 2019-10-18 02:25 | NUR ---
UPDATE DR BRAND NOTIFIED OF PATIENT'S ELEVATED BLOOD PRESSURE. NO ORDERS GIVEN AT THIS TIME.
--- NOTE | 2019-10-18 07:30 | NUR ---
PT MEDICATED WITH 2MG MORPHONE FOR UNRATEABLE PAIN, PT YELLING OUT CONSTANTLY ASKING TO BE "LET OUT OF THE TRUCK" UNABLE TO REDIRECT PT THAT SHE IS IN THE HSOPITAL AND NOT IN A TRUCK. PT DOES NOT CALM WITH MORPHINE ADMIN
--- NOTE | 2019-10-18 07:53 | NUR ---
PT RESTING IN BED COMFORTABLY AT THIS TIME, IN NO ACUTE DISTRESS. WAS MONITORED EVERY 1-2 HOURS WITH NEEDS MET. DENIES ANY NEEDS AT THIS TIME. CALL LIGHT AND POSSESSIONS IN REACH, BED IN LOW AND LOCKED POSITION WITH BED ALARM ACTIVATED.
--- NOTE | 2019-10-18 09:14 | NUR ---
MORNING MEDICATIONS HELD PER FAMILY REQUEST PT IS SLEPING
--- NOTE | 2019-10-18 15:52 | NUR ---
PT REFUSES ROXICODONE PT SCREAMING "HELP YOU ASS" THEN REFUSED MEDS STS "I HURT YOU ASS" AGAIN REFUSED MEDS. SCREAMING THAT SHE CAN NOT BREATHE STS SHE IS "SUING EVERYONE HERE" SPO2 97% PT SFREAMING "I'M NOT COMFORTABLE YOU SON OF A BITCH I'M GOING TO ALEXIS YOU" REFUSES TO ALLOW REPOSITIONING
--- NOTE | 2019-10-18 17:27 | NUR ---
SHIFT NOTE PT IS INTERMITTENTLY ALERT, SCREAMS OUT AND CURSES ARE STAFF WHILE AWAKE THREATENS STAFF AND STRIKES AT STAFF. PT HAS INTERMITTENTLY REFUSED MEDCIATIONS WHEN IMMEDIATELY DEMANDS "DO YOUR JOB AND HELP ME" BUT REFUSES ANY ASSISTANCE. PT CAROUSEL ATTENDANT WAS CALLED SHE SAID IF PT BECOMES CONFUSED AND AGITATED TO CALL AND SHE WOULD COME SEE HER, SHE WAS CALLED BUT HAS NOT ARRIVED AT THE TIME OF THIS NOTE. PT HAS BEEN MADE COMFORT CARE AND CHANGED TO MEDICAL STATUS.
--- NOTE | 2019-10-18 17:37 | NUR ---
Checked pt. She appears more comfortable. She is resting, snoring quietly. No s/s of distress. Call placed to pt's earlier. Confirmed comfort care plan, discussed POLST form. He reports that pt is not coming home until Monday. Attempted to contact care center manager, as nurses have told me that this pt is leaving tomorrow on hospice. Called MELVA Mao. Reviewed. Daylin called [facility]. They report that pt's hospital bed arrived and the turned it away and told them that he will not need it until Monday. At this point, the discharge is moved to Monday. Will follow up with pt and family over the weekend. No other concerns at this time.
--- NOTE | 2019-10-18 19:23 | NUR ---
REPORT TO MADELEINE CAMARGO ON MEDICAL FLOOR
--- NOTE | 2019-10-18 19:28 | NUR ---
transfer report from Elina CAMARGO on PT with hx of CVA, TBI and another CVA. RN reports combative verbally abusive BX relieved by IV ativan and roxinol. PT was put on comfort measures today. Has supportive family await transfer from room PCU 8.
--- NOTE | 2019-10-18 20:37 | NUR ---
pt recieved as transfer 2024. Moaning sayinglt knee hurts with tranfer slide from bed to bed. Medicating for pain.
--- NOTE | 2019-10-18 21:23 | NUR ---
PT had 20 mg roxinol with helpful effect to decrease lt knee pain. DR paula called and discussed code status DNR and comfort measures. No polst found on chart no family accompany to floor. suresh patent and draining. moans and softly calls out. no aggression noted. care channel turned on to attempt to relax PT.
--- NOTE | 2019-10-18 21:40 | NUR ---
recieved PT PCU transfer on comfort care. CO lt knee pain with bed to bed transfer. Reported that 20 mg roxinol not effective so gave 20 mg with some relief.
--- NOTE | 2019-10-19 04:53 | NUR ---
pt has dementia, no family accompany her to medical floor on transfer. Oriented her to unit plan of care and plan to manage pain and anxiety. Minimal understanding from PT continue to reinforce.
--- NOTE | 2019-10-19 04:55 | NUR ---
PT transferred from PCU 8 unaccompanied by family. PT has dx dementia, lung cancer CVA, TBI. On comfort measures started yesterday. Medicated for S/sx of pain and some anxiety with roxinol 20 mg sl with good effect. Turned Q 2 hours, suresh and oral care. Mild yelling out and some resisitance with cares.
--- NOTE | 2019-10-19 05:20 | NUR ---
SLEEPING SOUNDLY WITH RELAXING MUSIC ON CARES CHANNEL. BED ALARM ON
--- NOTE | 2019-10-19 10:30 | NUR ---
Clinical Visit; Pt restless, complaining of pain in her leg. She has increased anxiety, moaning and pleading, "help me." She has recieved a dose of roxanol, but she is still complaining of pain. Attempted oral care, she is pushing me away with her right hand and then grabbing. Reviewed with pt's , Ronny. He is at bedside and upset that she is so aggitated. Ronny is asking questions about her comfort. Discussed pain medications and side effects. Instructed that pain medications can have a sedating side effect. He states that he would rather her pain managed and be sleepy than agitated and painful. Educated on roxanol, fentanyl patch, ativan. Answered questions about hospice services. Instructed on 24 hour nurse availability, nurse visits, bath aid services. Ronny verbalizes that this would be very helpful as he is trying to take care of her. Instructed that he and the caregiver will be the primary caregivers, with the support of the hospice services to educate, manage symptoms, and provide personal care typically twice per week. Concern that pt has not had a bowel movement charted during her hospitalization. Bowel care initiated. Reviewed with nursing. Discussed medications and strategy to keep pt comfortable. Pt fairly out of control with symptoms at this time. Will reassess pt after medication is administered.
--- NOTE | 2019-10-19 18:08 | NUR ---
SHIFT SUMMARY PATIENT MEDICATED X2 WITH ROXANOL AND FENTANYL PATCH APPLIED. IV ATIVAN GIVEN X1. REPOSITIONED Q2. PATIENT CAN BE AGITATED BY CARE. FAMILY VISITED AT BEDSIDE SEVERAL TIMES TODAY. DISCAHRGE HOME WITH HOSPICE EXPECTED FOR MONDAY.
--- NOTE | 2019-10-20 07:55 | NUR ---
PT RESTING/SLEEPING, NO S/S PAIN. @ BEDSIDE. [facility] ANSWERED R/T PLAN FOR HOME W HOSPICE ON MONDAY. HE STATE HE WILL ASSIST HER W BF, ASP PRECAUTIONS REVIEWED.
--- NOTE | 2019-10-20 14:18 | NUR ---
THIS AM PT HAD BEEN ANXIOUS/RESTLESS, MOANING, NOD YES TO PAIN/DISCOMFORT, UNABLE TO SPECIFY D/T MENTATION, APHASIA. GAVE PRN ROXANOL 20MG W/O SIGNIFICANT RELIEF. @ BEDSIDE, REVIEWED W HIM COMFORT MEASURES. GAVE ATIVAN 1MG & ANOTHER DOSE ROXANOL 10MG. PT ABLE TO RELAX & CALM, SHE HAS BEEN RESTING QUIETLY, SLEEPING. RR APPROX 20/MIN.
--- NOTE | 2019-10-20 17:32 | NUR ---
PT RESTING/SLEEPING. PALLIATIVE CARE RN IN TO CHECK ON HER, STATE APPEARS COMFORTABLE, NO S/S PAIN OR RESP DISTRESS. LEAD RIDER PROVIDE ORAL CARE, REPOSTION PRN, PT SUPINE SUPPORTED W PILLOWS @ THIS TIME. [facility] PATENT/NAINA LITTLEJOHN YELLOW URINE. DR CEJA PLACE D/C ORDERS IN PREP FOR D/C HOME TOMORROW W HOSPICE WHEN HOME IS READY.
--- NOTE | 2019-10-20 17:42 | NUR ---
Comfort Care: Pt appears to be comfortable. She is open mouth breathing and snoring softly. No s/s of distress noted. Discussed with nurse, Wai. He states that the was here earlier. He is anxious about taking her home. Wai has coached on diet and eating today; educated on hospice availability. Pt was painful and distressed earlier. Wai gave her Ativan and 20 mg Roxanol, followed by another 10 mg roxanol later. After this, she was able to settle down. Pt appears to be on appropriate medications. Palliative to follow until discharge tomorrow morning with [facility] hosp[facility].
--- NOTE | 2019-10-20 21:08 | NUR ---
CHANGED ATTENDS, STOOL WAS MEDIUM, VERY DARK GREE, LOOSE, AND CONTAINED MUCOUS YELLOW/CASTELLANOS IN COLOR.
--- NOTE | 2019-10-20 23:01 | NUR ---
COMFORT CARE ASSESSMENT PT WAS AGITATED AT START OF SHIFT, MEDICATED PER EMAR. AFTER REASSESSMENT, PT WAS STILL AGITATED, PT REPOSTIONED, ATTENDS CHANGED, AND MEDICATED PER EMAR. PT IS CURRENTLY SLEEPING, RESPIRATIONS EVEN AND UNLABORED. MEDICATED WITHHELD DUE TO REFUSAL TO OPEN MOUTH. PT GROANED THAT SHE WANTED HELP, BUT THEN WHEN REPOSITIONED STATED THAT SHE WANTED TO BE LEFT ALONE. PT IS CURRENTLY RESTING, CALL LIGHT IN REACH, BED IN LOWEST POSTION, WILL CONTINUE TO MONITOR.
--- NOTE | 2019-10-21 03:01 | NUR ---
COMFORT CARE ASSESSMENT PT HAS BEEN SLEEPING MOST OF THE NIGHT. RESPIRATIONS EVEN AND UNLABORED, PT IS SNORING, PT REPOSITIONED. CALL LIGHT IN REACH, BED IN LOWEST POSTION WILL CONTINUE TO MONITOR.
--- NOTE | 2019-10-21 04:43 | NUR ---
END SHIFT SUMMARY NO ACUTE CHANGES T/O THE NIGHT. PT SLEPT AFTER RECEIVING PAIN MEDICATION. PT WAS REPOSTIED AND CHANGED. PT IS SCHEDULED TO BED DISCHARGED TODAY WITH FAMILY ON HOSPICE. CALL LIGHT IN REACH, BED IN LOWEST POSTION, WILL CONTINUE TO MONITOR UNTIL DAYSHIFT NURSE ARRIVES.
--- NOTE | 2019-10-21 10:08 | NUR ---
PT DISCHARGED PT DISCHARGED HOME ON HOSPICE. PT MEDICATED PRIOR TO TRANSFER. [facility] TRANSPORT TO TAKE PT ON GURNEY HOME. CAREGIVER & AWARE OF DC.
== END 2019-10-21 10:08 | disposition hospice, home (50) | DRG 65 ==
LOC: ER 09:48 → PCU 11:17 → ER 12:01 → PCU 12:01 → MEDS 10-18 20:30
PROVIDERS: Emergency Medicine; Internal Medicine; Student in an Organized Health Care Education/Training Program; ADMIT Internal Medicine
DX: I63.511 Cerebral infarction due to unspecified occlusion or stenosis of right middle cerebral artery (principal); G81.94 Hemiplegia, unspecified affecting left nondominant side; Z51.5 Encounter for palliative care; F03.90 Unspecified dementia, unspecified severity, without behavioral disturbance, psychotic disturbance, mood disturbance, and anxiety; R33.8 Other retention of urine; R47.81 Slurred speech; R29.810 Facial weakness; N18.3 Chronic kidney disease, stage 3 (moderate); E03.9 Hypothyroidism, unspecified; E78.5 Hyperlipidemia, unspecified; I12.9 Hypertensive chronic kidney disease with stage 1 through stage 4 chronic kidney disease, or unspecified chronic kidney disease; Z85.118 Personal history of other malignant neoplasm of bronchus and lung; E87.5 Hyperkalemia; R13.12 Dysphagia, oropharyngeal phase
CPT/HCPCS: 36415; 70450; 71045; 80048; 80053; 84484; 85025; 85610; 85730; 92526; 92610; 93005; 93010; 97110; 97162; 97167; 97535; 99285-25; J1650; J2060; J2270; J7030